=== PATIENT | male | born 2000 | race Caucasian/White ===

== ENCOUNTER 2020-03-06 23:25 | Emergency (ER) | payer BC, OTHER, SELFPAY ==
[2020-03-06] MEDS ORDERED: MORPHINE 4 MG/ML SYR ONE (23:55)
[2020-03-06] MEDS ORDERED: ONDANSETRON 4 MG/2 ML VIAL ONE (23:55)
[2020-03-06] MEDS ORDERED: NA CHLORIDE 0.9% 1,000 ML ONE (23:55)
[2020-03-06 23:58] LABS: Absolute Lymphocytes (CBC) 3.4 K/uL (0.7-4.9); Basophils % 0.5 % (0-1.3); Hematocrit 47.8 % (39.6-49.0); Lymphocytes % 21.3 % (15.3-44.8); MPV 8.3 fL (7.6-11.3); RBC Red Blood Cell Count 5.55 M/uL (4.33-5.43)
[2020-03-07 00:34] LABS: ALT/SGPT 124 U/L (12-78); Albumin 4.4 g/dL (3.4-5.0); Alkaline Phosphatase 175 U/L (45-117); BUN Blood Urea Nitrogen 17 mg/dL (7-18); Bicarbonate 29 mmol/L (21-32); Bilirubin Direct < 0.1 mg/dL (0-0.2); Bilirubin Total 0.4 mg/dL (0.2-1.0); Glucose Level 117 mg/dL (74-106); Lipase 199 U/L (73-393); Potassium 4.1 mmol/L (3.5-5.1); Protein, Total 8.1 g/dL (6.4-8.2); Sodium Level 139 mmol/L (136-145)
[2020-03-07 00:37] LABS: AST/SGOT 514 U/L (15-37)
[2020-03-07 00:52] LABS: Barbiturates NEGATIVE (NEGATIVE); Benzodiazepines NEGATIVE (NEGATIVE); Cocaine NEGATIVE (NEGATIVE); METHAMPHETAM NEGATIVE (NEGATIVE); Methadone NEGATIVE (NEGATIVE); Opiates POSITIVE (NEGATIVE); Phencyclidine NEGATIVE (NEGATIVE); THC Cannibis POSITIVE (NEGATIVE)
--- NOTE | 2020-03-07 01:54 | EDPHYS ---
Physician Documentation [facility] Name: Jason Barajas Age: 19 yrs Sex: Male : 2000 Arrival Date: 03/06/2020 Time: 23:28 Bed 8 Private MD: ED Physician Kendrick Benson HPI: 03/06 23:45 This 19 yrs old Male presents to ER via Ambulatory with complaints of pm1 Abdominal pain. 23:45 The patient presents with abdominal pain that is diffuse. Onset: The symptoms/episode pm1 began/occurred 2 hour(s) ago. The symptoms do not radiate. Associated signs and symptoms: Pertinent positives: nausea and vomiting, Pertinent negatives: diarrhea, dysuria, fever. The symptoms are described as crampy. Modifying factors: The symptoms are alleviated by vomiting the pizza that he ate for lunch improved his pain. the symptoms are aggravated by nothing. Severity of pain: in the emergency department the pain has improved. The patient has not experienced similar symptoms in the past. Historical: - Allergies: 23:42 No Known Allergies; rv - Home Meds: 23:42 None [Active]; rv - PMHx: 23:42 None; rv - PSHx: 23:42 None; rv - Immunization history:: Adult Immunizations up to date. - Social history:: Smoking status: Patient denies any tobacco usage or history of. ROS: 23:45 Constitutional: Negative for fever, chills, and weight loss, Eyes: Negative for injury, pm1 pain, redness, and discharge, ENT: Negative for injury, pain, and discharge, Neck: Negative for injury, pain, and swelling, Cardiovascular: Negative for chest pain, palpitations, and edema, Respiratory: Negative for shortness of breath, cough, wheezing, and pleuritic chest pain. 23:45 Back: Negative for injury and pain, : Negative for injury, bleeding, discharge, and swelling, MS/Extremity: Negative for injury and deformity, Skin: Negative for injury, rash, and discoloration, Neuro: Negative for headache, weakness, numbness, tingling, and seizure. 23:45 Abdomen/GI: Positive for abdominal pain, nausea and vomiting, Negative for diarrhea, constipation. Exam: 23:45 Constitutional: This is a well developed, well nourished patient who is awake, alert, pm1 and in no acute distress. Head/Face: Normocephalic, atraumatic. Neck: Trachea midline, no thyromegaly or masses palpated, and no cervical lymphadenopathy. Supple, full range of motion without nuchal rigidity, or vertebral point tenderness. No Meningismus. Chest/axilla: Normal chest wall appearance and motion. Nontender with no deformity. No lesions are appreciated. Cardiovascular: Regular rate and rhythm with a normal S1 and S2. No gallops, murmurs, or rubs. Normal PMI, no JVD. No pulse deficits. Respiratory: Lungs have equal breath sounds bilaterally, clear to auscultation and percussion. No rales, rhonchi or wheezes noted. No increased work of breathing, no retractions or nasal flaring. 23:45 Back: No spinal tenderness. No costovertebral tenderness. Full range of motion. Skin: Warm, dry with normal turgor. Normal color with no rashes, no lesions, and no evidence of cellulitis. MS/ Extremity: Pulses equal, no cyanosis. Neurovascular intact. Full, normal range of motion. 23:45 Abdomen/GI: Inspection: abdomen appears normal, Palpation: soft, in all quadrants, mild abdominal tenderness, in the epigastric area and right lower quadrant, mass, is not appreciated, rebound tenderness, is not appreciated. 23:45 Neuro: Orientation: is normal, Mentation: is normal, Motor: is normal, moves all fours, Gait: is steady, at a normal pace, without difficulty. 03/07 01:43 Abdomen/GI: Inspection: abdomen appears normal, Palpation: abdomen is soft and pm1 non-tender, in all quadrants. Vital Signs: 03/06 23:40 BP 146 / 112; Pulse 110; Resp 16; Temp 99.4; Pulse Ox 100% ; Weight 77.11 kg; Height 5 rv ft. 9 in. (175.26 cm); Pain 10/10; 23:56 BP 119 / 82; Pulse 88; Resp 17; Pulse Ox 100% on R/A; rv 03/07 01:53 BP 118 / 75; Pulse 86; Resp 16; Temp 99(O); Pulse Ox 99% ; rv 03/06 23:40 Body Mass Index 25.10 (77.11 kg, 175.26 cm) rv MDM: 03/06 23:42 Patient medically screened. pm03/07 01:47 ED course: Patient ate food without any difficulty. Explained to patient that he was pm1 supposed to be NPO until we got all his results back but he is having no difficulty with eating. Patient reports improvement in abdominal pain with passing gas. Patient believes that he ate some bad pizza and got food poisoning. Patient drank alcohol to Friday, approximately 5 beers each day. 01:47 Data reviewed: vital signs. Data interpreted: Pulse oximetry: on room air is 100 %. pm1 Interpretation: normal. 01:47 Counseling: I had a detailed discussion with the patient and/or guardian regarding: the pm1 historical points, exam findings, and any diagnostic results supporting the discharge/admit diagnosis, lab results, radiology results, the need for outpatient follow up, a gym instructor, to return to the emergency department if symptoms worsen or persist or if there are any questions or concerns that arise at home. 03/06 23:43 Order name: Basic Metabolic Panel; Complete Time: 00:38 pm1 03/06 23:43 Order name: CBC with Diff; Complete Time: 00:23 pm03/06 23:43 Order name: Hepatic Function; Complete Time: 00:38 pm03/06 23:43 Order name: Lipase; Complete Time: 00:38 pm03/06 23:57 Order name: UDS; Complete Time: 00:54 03/07 00:34 Order name: ETOH Level; Complete Time: 01:34 1 03/06 23:43 Order name: IV Saline Lock; Complete Time: 23:45 pm03/06 23:43 Order name: Labs collected and sent; Complete Time: 23:45 pm03/06 23:43 Order name: CT Abd/Pelvis - IV Contrast Only 1 03/07 00:02 Order name: Urine Dipstick-Ancillary (obtain specimen); Complete Time: 00:47 pm03/07 00:42 Order name: Urine Dipstick--Ancillary (enter results) mw2 Administered Medications: 03/06 23:52 Drug: NS 0.9% 1000 ml Route: IV; Rate: 1000 ml; Site: right antecubital; 03/07 01:54 Follow up: IV Status: Completed infusion; IV Intake: 1000ml 03/06 23:52 Drug: morphine 4 mg {Note: RASS 0.} Route: IVP; Site: right antecubital; rv 03/07 01:15 Follow up: Response: No adverse reaction; Marked relief of symptoms; Pain is decreased; rv RASS: Alert and Calm (0) 03/06 23:52 Drug: Zofran (Ondansetron) 4 mg Route: IVP; Site: right antecubital; rv 03/07 01:15 Follow up: Response: No adverse reaction rv Disposition: 07:04 Co-signature as Attending Physician, Kendrick Benson MD I agree with the assessment and tw4 plan of care. Disposition: 03/07/20 01:53 Discharged to Home. Impression: Unspecified abdominal pain, Vomiting. - Condition is Stable. - Discharge Instructions: Abdominal Pain, Adult, Food Poisoning, Nausea and Vomiting, Adult. - Prescriptions for Bentyl 20 mg Oral Tablet - take 1 tablet by ORAL route every 6 hours As needed; 20 tablet. Zofran ODT 4 mg Oral tablet,disintegrating - place 1 tablet by TRANSLINGUAL route every 8 hours As needed; 12 tablet. - Medication Reconciliation Form, Thank You Letter, Antibiotic Education, Prescription Opioid Use form. - Follow up: Emergency Department; When: As needed; Reason: Worsening of condition. Follow up: Private Physician; When: 2 - 3 days; Reason: Recheck today's complaints, Continuance of care, Re-evaluation by your physician. - Problem is new. - Symptoms have improved. Signatures: Dispatcher [employer] EDMS Yosi Francis, WHEEL CLEANER WHEEL CLEANER pm1 Kendrick Benson MD MD tw4 Matt Benitez RN RN rv Corrections: (The following items were deleted from the chart) 01:57 01:53 03/07/2020 01:53 Discharged to Home. Impression: Unspecified abdominal rv painVomiting. Condition is Stable. Forms are Medication Reconciliation Form, Thank You Letter, Antibiotic Education, Prescription Opioid Use. Follow up: Emergency Department; When: As needed; Reason: Worsening of condition. Follow up: Private Physician; When: 2 - 3 days; Reason: Recheck today's complaints, Continuance of care, Re-evaluation by your physician. Problem is new. Symptoms have improved. pm1
--- NOTE | 2020-03-07 01:54 | ER ---
Nurse's Notes [facility] Name: Jason Barajas Age: 19 yrs Sex: Male : 2000 Arrival Date: 03/06/2020 Time: 23:28 Bed 8 Private MD: Diagnosis: Vomiting;Unspecified abdominal pain Presentation: 03/06 23:40 Chief complaint: Patient states: ABDOMINAL PAIN STARTED TWO HOURS AGO, WITH NAUSEA AND rv VOMITING. POINTING TO RUQ PAIN RADIATING DOWN TO RLQ. Coronavirus screen: Proceed with normal triage. Ebola Screen: No symptoms or risks identified at this time. Initial Sepsis Screen: Does the patient meet any 2 criteria? No. Patient's initial sepsis screen is negative. Does the patient have a suspected source of infection? No. Patient's initial sepsis screen is negative. Risk Assessment: Do you want to hurt yourself or someone else? Patient reports no desire to harm self or others. Onset of symptoms was March 06, 2020 at 22:00. 23:40 Method Of Arrival: Ambulatory rv 23:40 Acuity: ОЛЕГ 3 rv Triage Assessment: 23:42 General: Appears uncomfortable, Behavior is calm, cooperative. Pain: Complains of pain rv in right upper quadrant Pain radiates to suprapubic area and right lower quadrant. EENT: No signs and/or symptoms were reported regarding the EENT system. Neuro: Level of Consciousness is awake, alert, obeys commands, Oriented to person, place, time, situation. Cardiovascular: Patient's skin is warm and dry. Respiratory: Airway is patent. GI: Abdomen is flat, non-distended, Reports lower abdominal pain, upper abdominal pain, nausea, vomiting. Derm: Skin is intact. Historical: - Allergies: 23:42 No Known Allergies; rv - Home Meds: 23:42 None [Active]; rv - PMHx: 23:42 None; rv - PSHx: 23:42 None; rv - Immunization history:: Adult Immunizations up to date. - Social history:: Smoking status: Patient denies any tobacco usage or history of. Screenin:44 Abuse screen: Denies threats or abuse. Denies injuries from another. Nutritional rv screening: No deficits noted. Tuberculosis screening: No symptoms or risk factors identified. Fall Risk None identified. Assessment: 03/07 01:53 Reassessment: Patient is alert, oriented x 3, equal unlabored respirations, skin rv warm/dry/pink. Patient states feeling better. Patient states symptoms have improved. Vital Signs: 03/06 23:40 BP 146 / 112; Pulse 110; Resp 16; Temp 99.4; Pulse Ox 100% ; Weight 77.11 kg; Height 5 rv ft. 9 in. (175.26 cm); Pain 10/10; 23:56 BP 119 / 82; Pulse 88; Resp 17; Pulse Ox 100% on R/A; rv 03/07 01:53 BP 118 / 75; Pulse 86; Resp 16; Temp 99(O); Pulse Ox 99% ; rv 03/06 23:40 Body Mass Index 25.10 (77.11 kg, 175.26 cm) rv ED Course: 03/06 23:28 Patient arrived in ED. cl3 23:36 Yosi Francis NP is PHCP. pm1 23:36 Kendrick Benson MD is Attending Physician. pm1 23:39 Matt Benitez RN is Primary Nurse. rv 23:42 Triage completed. rv 23:44 Arm band placed on Patient placed in the treatment room, on a stretcher, Patient rv notified of wait time. 23:44 Placed in gown. Bed in low position. Call light in reach. rv 23:44 No provider procedures requiring assistance completed. rv 23:47 Inserted saline lock: 20 gauge in right antecubital area, using aseptic technique. mt Blood collected. 03/07 00:36 CT Abd/Pelvis - IV Contrast Only In Process Unspecified. EDMS 00:36 Notified Nurse Practitioner and/or Physician Plater Supervisor of a critical lab result(s), AST lp1 514. 01:54 IV discontinued, intact, bleeding controlled, No redness/swelling at site. Pressure rv dressing applied. Administered Medications: 03/06 23:52 Drug: NS 0.9% 1000 ml Route: IV; Rate: 1000 ml; Site: right antecubital; rv 03/07 01:54 Follow up: IV Status: Completed infusion; IV Intake: 1000ml rv 03/06 23:52 Drug: morphine 4 mg {Note: RASS 0.} Route: IVP; Site: right antecubital; rv 03/07 01:15 Follow up: Response: No adverse reaction; Marked relief of symptoms; Pain is decreased; rv RASS: Alert and Calm (0) 03/06 23:52 Drug: Zofran (Ondansetron) 4 mg Route: IVP; Site: right antecubital; rv 03/07 01:15 Follow up: Response: No adverse reaction rv Intake: 01:54 IV: 1000ml; Total: 1000ml. rv Outcome: 01:53 Discharge ordered by . pm1 01:54 Discharged to home ambulatory. rv 01:54 Condition: good 01:57 Discharge instructions given to patient, Instructed on discharge instructions, follow rv up and referral plans. medication usage, Demonstrated understanding of instructions, follow-up care, medications, Prescriptions given X 2. 01:57 Patient left the ED. rv Signatures: Dispatcher [employer] EDMS Pia Neal RN RN lp1 Yosi Francis, DIRECTOR MARKETING ANALYTICS DIRECTOR MARKETING ANALYTICS pm1 Sayra Nelson mt, Ronaldo, RN RN Buck Castillo cl3
[2020-03-07 02:11] VITALS: BP 118/75; TEMP 99; O2SAT 99
[2020-03-07 03:05] LABS: Urine Blood 2+ (NEG); Urine Glucose NEGATIVE (NEG); Urine Protein 2+ (NEG); Urine Specific Gravity >1.030 (1.005-1.030)
--- NOTE | 2020-03-07 20:41 | RAD REPORT ---
EXAM DESCRIPTION: CT - Abdomen Pelvis W Contrast - 03/07/2020 1:53 am COMPARISON: None CLINICAL HISTORY: Right lower quadrant pain. TECHNIQUE: Multiple helical axial images were obtained through the abdomen and pelvis using intraven ous contrast. Coronal and sagittal reformatted images were obtained. All CT scans at this facility use dose modulation, iterative reconstruction, and/or weight-based dosi ng when appropriate to reduce radiation dose to as low as reasonably achievable. FINDINGS: Lung bases: Appear unremarkable. Liver: Homogenous attenuation is noted. Gallbladder/biliary: Appears unremarkable Pancreas: Unremarkable. No evidence of ductal enlargement. Spleen: Appears unremarkable. No splenomegaly. Adrenals: Unremarkable. Kidneys and ureters: No evidence of hydronephrosis. Normal enhancement. Bladder: Unremarkable. Pelvic organs: Unremarkable. Bowel: No evidence of bowel obstruction. Moderate amount of fecal material in the proximal colon de monstrated. No bowel wall thickening. Appendix appears unremarkable. Vasculature: Unremarkable. Peritoneum: No free air. No significant free fluid. Lymph nodes: Unremarkable. Soft tissues: Unremarkable. Bones: Unremarkable. IMPRESSION: No evidence for an acute process within the abdomen or pelvis. Electronically signed by: Willie Alford MD 03/07/2020 12:53 AM CDT Due to temporary technical issues with the PACS/Fluency reporting system, reports are being signed by the in house radiologist without review as a courtesy to ensure prompt reporting. The interpreting r adiologist is fully responsible for the content of the report.
== END 2020-03-07 01:57 | disposition home or self-care (01) ==
LOC: ER 23:25
DX: R11.2 Nausea with vomiting, unspecified (principal)
CPT/HCPCS: 96361; 85025; 80048; 36415; 80320; 80076; 80307 ×8; 81003; 83690; 74177; 96375; 96374; 99284; Q9967; J7030; J2405